=== PATIENT | female | born 1940 | race Caucasian/White ===

== ENCOUNTER 2018-12-27 11:59 | Inpatient (IN) | payer MEDICARE ==
[2018-12-22 12:03] LABS: BASOPHILS # (AUTO) 0.1 X10'3 (0-0.2); BASOPHILS % (AUTO) 0.8 % (0-1); EOSINOPHILS # (AUTO) 0.1 X10'3 (0-0.9); EOSINOPHILS % (AUTO) 1.6 % (0-6); LYMPHOCYTES # (AUTO) 1.7 X10'3 (1.1-4.8); LYMPHOCYTES % (AUTO) 26.5 % (21-51); MEAN CORPUSCULAR HEMOGLOBIN 28.8 PG (27.0-31.0); MEAN CORPUSCULAR HGB CONC 33.8 g/dL (33.0-36.5); MEAN PLATELET VOLUME 8.5 FL (7.4-10.4); MONOCYTES # (AUTO) 0.5 X10'3 (0-0.9); MONOCYTES % (AUTO) 7.6 % (2-12); NEUTROPHILS # (AUTO) 4.1 X10'3 (1.8-7.7); NEUTROPHILS % (AUTO) 63.5 % (42-75); PRE OP HEMATOCRIT 38.7 % (35.0-45.0); PRE OP HEMOGLOBIN 13.1 g/dL (12.0-16.0); PRE OP INR 1.1 INR; PRE OP PLATELET COUNT 242 X10'3 (140-440); PRE OP PROTIME 10.7 SECONDS (9.0-12.0); RED BLOOD COUNT 4.56 X10'6 (4.20-5.60); RED CELL DISTRIBUTION WIDTH 13.9 % (11.5-14.5)
[2018-12-22 12:05] LABS: ALBUMIN 3.6 G/DL (3.4-5.0); ALBUMIN/GLOBULIN RATIO 1.1 (1.1-1.5); ALKALINE PHOSPHATASE 65 IU/L (46-116); BLOOD UREA NITROGEN 23 MG/DL (7-18); CALCIUM 9.3 MG/DL (8.5-10.1); CHLORIDE 104 MMOL/L (99-107); CREATININE 0.82 MG/DL (0.40-0.90); PRE OP ALT 23 U/L (30-65); PRE OP ANION GAP 6 (8-16); PRE OP AST 11 U/L (10-37); PRE OP BILIRUB, TOTAL 0.6 MG/DL (0.0-1.0); PRE OP GLUCOSE 94 MG/DL (70-104); PRE OP SODIUM 142 MMOL/L (135-145); TOTAL CARBON DIOXIDE 31.8 MMOL/L (24-32); TOTAL PROTEIN 6.9 G/DL (6.4-8.2); eGFR 68 ML/MIN
[2018-12-22 12:06] LABS: PRE OP POTASSIUM 3.2 MMOL/L (3.4-5.1)
[2018-12-26 12:30] VITALS: BP 155/67
[2018-12-27] VITALS (15 sets, daily range): BP systolic 116–155; BP diastolic 57–89
[~2018-12-27] VITALS: Ht 161.3 cm; Wt 70.2 kg
[~2018-12-27 11:59] MED LIST: ATOR20TA66 PO; FLUO-1 PO; HYDR-4353 PO; LISI1TAB32 PO
[2018-12-27] MEDS ORDERED: tranexamic acid inj. 1,000 MG in normal saline 100 ML IV ONE (12:00)
[2018-12-27] MEDS ORDERED: cefazolin/dext.iso 2gm/100 ML IV ONE (12:00)
[2018-12-27] MEDS ORDERED: ringers solution, lacted 1,000 ML IV SCH ×2 (12:00→14:51)
[2018-12-27] MEDS ORDERED: famotidine 20mg tablet PO ONE (12:00)
[2018-12-27] MEDS ORDERED: vancomycin inj 1,500 MG in normal saline 300ml IV soln IV ONE (12:00)
[2018-12-27 13:06] LABS: ISTAT CREATININE 0.8 mg/dL (0.6-1.1); ISTAT HGB 11.9 g/dl (12.0-16.0); ISTAT IONIZED CALCIUM 1.17 mmol/L (1.03-1.32); ISTAT K 3.3 mmol/L (3.5-5.1)
[2018-12-27] MEDS ORDERED: ceFAZolin 1000mg inj ONE (13:25)
[2018-12-27] MEDS ORDERED: tetracaine 1% (10mg/ml) pres. free inj. ONE (13:49)
[2018-12-27] MEDS ORDERED: fentaNYL/PF 50MCG/1 ML 2ML syringe ONE (13:50)
[2018-12-27] MEDS ORDERED: MIDAZolam 5mg/5ml vial ONE (13:50)
[2018-12-27] MEDS ORDERED: proCHLORperazine 10 MG/2 ml inj IV PRN (14:55)
[2018-12-27] MEDS ORDERED: morphine 4 MG/ML inj SYRINge IV PRN ×2 (14:55)
[2018-12-27] MEDS ORDERED: ondansetron/PF 4mg/2ml inj IV PRN (14:55)
[2018-12-27] MEDS ORDERED: meperidine/PF 25mg/ml syringe IV PRN ×3 (14:55)
[2018-12-27] MEDS ORDERED: propofol inj 20 ML IV ONE (16:05)
[2018-12-27] MEDS ORDERED: ePHEDrine 50MG/ML INJ. ONE (16:05)
--- NOTE | 2018-12-27 16:08 | NUR ---
ARRIVED IN PACU VIA BED FROM OR WITH DR HOLCOMB IN ATTENDANCE. REPORT RECEIVED. VS STABLE. COLOR GOOD. WARM BLANKETS APPLIED TO PT
[2018-12-27] MEDS ORDERED: bisacodyl 10mg suppository rectal RC PRN (16:15)
[2018-12-27] MEDS ORDERED: diphenhydrAMINE 25mg capsule PO PRN ×2 (16:15)
[2018-12-27] MEDS ORDERED: magnesium hydroxide 30ml (MOM) UD suspension PO PRN (16:15)
[2018-12-27] MEDS ORDERED: HYDROmorphone inj. 0.5 MG/0.5 ML DISP.SYRIN IV PRN (16:15)
[2018-12-27] MEDS ORDERED: acetaminophen 325mg tablet PO PRN (16:15)
--- NOTE | 2018-12-27 17:08 | NUR ---
VS STABLE. AWAKE. TO ROOM VIA BED. FLOWER IN ROOM TO ACCEPT PT
[2018-12-27] MEDS ORDERED: aspirin 325mg tablet PO SCH (17:30)
[2018-12-27] MEDS: oxyCODONE IR 5mg (immed. release) tablet PO PRN (19:01)
[2018-12-27] MEDS: vancomycin/NS 1 GM ADD-VANTAGE 250 ML IV SCH ×2 (20:00→21:35)
[2018-12-27] MEDS: HYDROchlorothiazide 12.5mg capsule PO SCH ×2 (21:00→21:35)
[2018-12-27] MEDS: sennosides 8.6mg tablet PO SCH ×2 (21:00→21:35)
[2018-12-27] MEDS ORDERED: HYDROCHLOROTHIAZIDE PO SCH (21:00)
[2018-12-27] MEDS: lisinopril 10 MG tablet PO SCH ×2 (21:00→21:35)
[2018-12-27] MEDS ORDERED: LISINOPRIL PO SCH (21:00)
[2018-12-27] MEDS: FLUoxetine 20mg capsule PO SCH ×2 (21:00→21:35)
[2018-12-27] MEDS ORDERED: [UNRECOGNIZED DRUG - OTHER] PO SCH (21:00)
[2018-12-28] VITALS (7 sets, daily range): BP systolic 101–118; BP diastolic 36–50
[2018-12-28] MEDS: oxyCODONE IR 5mg (immed. release) tablet PO PRN ×4 (00:29→16:42)
[2018-12-28] MEDS: ceFAZolin 1GM/D5W- ADD-VANTAGE 50 ML IV SCH ×2 (00:29→07:12)
--- NOTE | 2018-12-28 00:36 | NUR ---
PT MEDS SCANNED AT TIME OF ADMINISTRATION, WERE SAVED ON PORTABLE [employer] COMPUTER AND DID NOT REGISTER SCAN, WAS LATER DISCOVERED, RN THEN PERFORMED UNSCHEDULED ADMIN TO COMPLETE PLACEMENT INTERVIEWER. THE COMPUTER AGAIN DID NOT REGISTER ADMINISTRATION ON DESK COMPUTER. ALL MEDS REMAIN "LATE" IN PINK, BUT ALL WERE ADMINISTERED. 2134 ON 12/27/18.
[2018-12-28 06:11] LABS: BASOPHILS # (AUTO) 0.1 X10'3 (0-0.2); BASOPHILS % (AUTO) 0.8 % (0-1); EOSINOPHILS % (AUTO) 0.3 % (0-6); HEMATOCRIT 30.3 % (35.0-45.0); HEMOGLOBIN 10.5 g/dl (12.0-16.0); LYMPHOCYTES # (AUTO) 1.1 X10'3 (1.1-4.8); LYMPHOCYTES % (AUTO) 16.4 % (21-51); MEAN CORPUSCULAR HEMOGLOBIN 29.7 PG (27.0-31.0); MEAN CORPUSCULAR HGB CONC 34.7 g/dL (33.0-36.5); MEAN CORPUSCULAR VOLUME 85.5 FL (78-98); MEAN PLATELET VOLUME 8.4 FL (7.4-10.4); MONOCYTES # (AUTO) 0.6 X10'3 (0-0.9); MONOCYTES % (AUTO) 8.9 % (2-12); NEUTROPHILS # (AUTO) 4.9 X10'3 (1.8-7.7); NEUTROPHILS % (AUTO) 73.6 % (42-75); PLATELET COUNT 178 X10'3 (140-440); RED BLOOD COUNT 3.54 X10'6 (4.20-5.60); RED CELL DISTRIBUTION WIDTH 13.7 % (11.5-14.5); WHITE BLOOD COUNT 6.7 X10'3 (4.5-11.0)
--- NOTE | 2018-12-28 06:28 | NUR ---
Report given to tree Garcia.
[2018-12-28 06:29] LABS: ALANINE AMINOTRANSFERASE 18 U/L (12-78); ALBUMIN 2.7 G/DL (3.4-5.0); ALKALINE PHOSPHATASE 50 IU/L (46-116); ANION GAP 7 (8-16); ASPARTATE AMINO TRANSFERASE 16 U/L (10-37); BILIRUBIN,TOTAL 0.7 MG/DL (0.1-1.0); BLOOD UREA NITROGEN 18 MG/DL (7-18); BUN/CREATININE RATIO 23.7 (6.6-38.0); CALCIUM 8.3 MG/DL (8.5-10.1); CHLORIDE 106 MMOL/L (99-107); CREATININE 0.76 MG/DL (0.40-0.90); GLUCOSE 123 MG/DL (70-104); POTASSIUM 3.4 MMOL/L (3.5-5.1); SODIUM 143 MMOL/L (135-145); TOTAL CARBON DIOXIDE 30.1 MMOL/L (24-32); TOTAL PROTEIN 5.3 G/DL (6.4-8.2); eGFR 74 ML/MIN
--- NOTE | 2018-12-28 06:30 | NUR ---
Patient in room [facility] 4014. I have received report from ISAURO Mckenna and had the opportunity to ask questions and assume patient care.
[2018-12-28] MEDS: aspirin 81mg tablet.DR PO SCH ×2 (07:12→17:33)
[2018-12-28] MEDS ORDERED: potassium CL 10mEq/100ml bag 100 ML IV PRN ×2 (09:40)
[2018-12-28] MEDS ORDERED: potassium Cl 20 mEq SR tablet PO PRN (09:40)
[2018-12-28] MEDS: potassium Cl 20 mEq SR tablet PO PRN ×3 (09:59→17:32)
[2018-12-28] MEDS: potassium Cl 20mEq in NS 1,000 ML IV SCH ×4 (13:15→19:48)
--- NOTE | 2018-12-28 16:00 | NUR ---
Total joint replacement: Pt seen at bedside provided with written and verbal protein education and RD contact information. Pt currently on regular diet with documented 25-50% PO intake at breakfast however 0% at lunch not meeting nutrient needs. Pt reports low PO intake r/t post-op nausea and is agreeable to mexican yogurt TID, d/w dietary. Will continue to follow. Addendum: 12/28/18 at [address] Amended: Links added.
--- NOTE | 2018-12-28 18:52 | NUR ---
Problems reprioritized. Patient report given, questions answered & plan of care reviewed with ISAURO Aguayo.
[2018-12-28] MEDS: ketorolac tromethamine 15mg/ml inj. IV SCH (19:35)
[2018-12-28] MEDS: sennosides 8.6mg tablet PO SCH (19:35)
[2018-12-28] MEDS: lisinopril 10 MG tablet PO SCH (19:36)
[2018-12-28] MEDS: FLUoxetine 20mg capsule PO SCH (19:36)
[2018-12-28] MEDS: HYDROchlorothiazide 12.5mg capsule PO SCH (19:37)
[2018-12-28] MEDS: ondansetron/PF 4mg/2ml inj IV PRN (19:47)
[2018-12-28] MEDS ORDERED: ketorolac tromethamine 15mg/ml inj. IM SCH (20:00)
--- NOTE | 2018-12-28 23:26 | NUR ---
noted decreased BP at 2200, better at 2300. pt alert, resting. at a couple crackers and reports her stomach feeling a little better. PM BP meds were held earlier.
[2018-12-29] MEDS: ketorolac tromethamine 15mg/ml inj. IV SCH ×4 (01:46→20:09)
[2018-12-29] MEDS: potassium Cl 20mEq in NS 1,000 ML IV SCH (01:52)
[2018-12-29 01:57] VITALS: BP 129/62
[2018-12-29] MEDS: oxyCODONE IR 5mg (immed. release) tablet PO PRN (05:34)
[2018-12-29 06:11] LABS: BASOPHILS % (AUTO) 0.4 % (0-1); EOSINOPHILS # (AUTO) 0.3 X10'3 (0-0.9); EOSINOPHILS % (AUTO) 3.9 % (0-6); HEMATOCRIT 29.9 % (35.0-45.0); HEMOGLOBIN 10.4 g/dl (12.0-16.0); LYMPHOCYTES # (AUTO) 1.1 X10'3 (1.1-4.8); LYMPHOCYTES % (AUTO) 13.1 % (21-51); MEAN CORPUSCULAR HEMOGLOBIN 29.4 PG (27.0-31.0); MEAN CORPUSCULAR HGB CONC 34.7 g/dL (33.0-36.5); MEAN CORPUSCULAR VOLUME 84.9 FL (78-98); MEAN PLATELET VOLUME 8.6 FL (7.4-10.4); MONOCYTES # (AUTO) 0.8 X10'3 (0-0.9); MONOCYTES % (AUTO) 9.2 % (2-12); NEUTROPHILS % (AUTO) 73.4 % (42-75); PLATELET COUNT 170 X10'3 (140-440); RED BLOOD COUNT 3.52 X10'6 (4.20-5.60); RED CELL DISTRIBUTION WIDTH 13.9 % (11.5-14.5); WHITE BLOOD COUNT 8.2 X10'3 (4.5-11.0)
--- NOTE | 2018-12-29 06:15 | NUR ---
reported to days. pt states she is feeling better this am. faxed for cream of wheat this am.
[2018-12-29 06:20] LABS: ALANINE AMINOTRANSFERASE 15 U/L (12-78); ALBUMIN 2.4 G/DL (3.4-5.0); ALBUMIN/GLOBULIN RATIO 0.9 (1.1-1.5); ALKALINE PHOSPHATASE 50 IU/L (46-116); ANION GAP 6 (8-16); ASPARTATE AMINO TRANSFERASE 14 U/L (10-37); BILIRUBIN,TOTAL 0.7 MG/DL (0.1-1.0); BLOOD UREA NITROGEN 16 MG/DL (7-18); BUN/CREATININE RATIO 20.5 (6.6-38.0); CHLORIDE 106 MMOL/L (99-107); CREATININE 0.78 MG/DL (0.40-0.90); GLUCOSE 115 MG/DL (70-104); POTASSIUM 3.8 MMOL/L (3.5-5.1); SODIUM 141 MMOL/L (135-145); TOTAL CARBON DIOXIDE 28.9 MMOL/L (24-32); TOTAL PROTEIN 5.2 G/DL (6.4-8.2); eGFR 72 ML/MIN
[2018-12-29 06:40] VITALS: BP 146/69
[2018-12-29] MEDS: K and/or MAG REPLACEMENT MC SCH (08:00)
[2018-12-29 10:00] VITALS: BP 120/68
[2018-12-29] MEDS: aspirin 81mg tablet.DR PO SCH ×2 (10:30→17:40)
[2018-12-29 18:00] VITALS: BP 117/65
--- NOTE | 2018-12-29 18:39 | NUR ---
Patient in room [facility] 4014. I have received report from Jenna BOX and had the opportunity to ask questions and assume patient care.
[2018-12-29 20:00] VITALS: BP 148/59
[2018-12-29] MEDS: sennosides 8.6mg tablet PO SCH (20:05)
[2018-12-29] MEDS: FLUoxetine 20mg capsule PO SCH (20:05)
[2018-12-29] MEDS: HYDROchlorothiazide 12.5mg capsule PO SCH (20:07)
[2018-12-29] MEDS: lisinopril 10 MG tablet PO SCH (20:08)
[2018-12-29 22:00] VITALS: BP 145/53
[2018-12-30] MEDS: ketorolac tromethamine 15mg/ml inj. IV SCH (02:28)
[2018-12-30 06:00] VITALS: BP 146/50
--- NOTE | 2018-12-30 06:15 | NUR ---
Patient in room [facility] 4014. I have received report from Antione BOX and had the opportunity to ask questions and assume patient care.
--- NOTE | 2018-12-30 06:23 | NUR ---
Problems reprioritized. Patient report given, questions answered & plan of care reviewed with Mindi BOX.
[2018-12-30 06:43] LABS: ALANINE AMINOTRANSFERASE 14 U/L (12-78); ALBUMIN 2.3 G/DL (3.4-5.0); ALBUMIN/GLOBULIN RATIO 0.8 (1.1-1.5); ALKALINE PHOSPHATASE 53 IU/L (46-116); ANION GAP 6 (8-16); ASPARTATE AMINO TRANSFERASE 14 U/L (10-37); BILIRUBIN,TOTAL 0.8 MG/DL (0.1-1.0); BLOOD UREA NITROGEN 17 MG/DL (7-18); BUN/CREATININE RATIO 24.6 (6.6-38.0); CALCIUM 8.1 MG/DL (8.5-10.1); CHLORIDE 103 MMOL/L (99-107); CREATININE 0.69 MG/DL (0.40-0.90); GLUCOSE 112 MG/DL (70-104); POTASSIUM 3.4 MMOL/L (3.5-5.1); SODIUM 138 MMOL/L (135-145); TOTAL CARBON DIOXIDE 29.1 MMOL/L (24-32); TOTAL PROTEIN 5.3 G/DL (6.4-8.2); eGFR 82 ML/MIN
[2018-12-30 06:51] LABS: BASOPHILS % (AUTO) 0.2 % (0-1); EOSINOPHILS # (AUTO) 0.3 X10'3 (0-0.9); EOSINOPHILS % (AUTO) 2.9 % (0-6); HEMOGLOBIN 9.4 g/dl (12.0-16.0); LYMPHOCYTES % (AUTO) 10.6 % (21-51); MEAN CORPUSCULAR HEMOGLOBIN 29.5 PG (27.0-31.0); MEAN CORPUSCULAR HGB CONC 34.8 g/dL (33.0-36.5); MEAN CORPUSCULAR VOLUME 84.7 FL (78-98); MEAN PLATELET VOLUME 8.8 FL (7.4-10.4); MONOCYTES # (AUTO) 0.7 X10'3 (0-0.9); MONOCYTES % (AUTO) 7.9 % (2-12); NEUTROPHILS # (AUTO) 7.3 X10'3 (1.8-7.7); NEUTROPHILS % (AUTO) 78.4 % (42-75); PLATELET COUNT 170 X10'3 (140-440); RED BLOOD COUNT 3.19 X10'6 (4.20-5.60); RED CELL DISTRIBUTION WIDTH 13.7 % (11.5-14.5); WHITE BLOOD COUNT 9.3 X10'3 (4.5-11.0)
[2018-12-30] MEDS: aspirin 81mg tablet.DR PO SCH ×2 (07:18→18:19)
[2018-12-30] MEDS: potassium Cl 20 mEq SR tablet PO PRN ×3 (07:18→20:00)
[2018-12-30] MEDS: K and/or MAG REPLACEMENT MC SCH (08:00)
[2018-12-30 10:00] VITALS: BP 144/53
[2018-12-30] MEDS: mag hydrox/Alum hydrox/simeth 30ml oral suspension PO PRN ×2 (10:08→20:01)
[2018-12-30] MEDS: oxyCODONE IR 5mg (immed. release) tablet PO PRN (16:16)
[2018-12-30] MEDS: ondansetron/PF 4mg/2ml inj IV PRN (16:17)
[2018-12-30 18:00] VITALS: BP 127/45
--- NOTE | 2018-12-30 18:03 | NUR ---
Problems reprioritized. Patient report given, questions answered & plan of care reviewed with Antione BOX.
--- NOTE | 2018-12-30 18:11 | NUR ---
Problems reprioritized. Patient report given, questions answered & plan of care reviewed with Antione BOX.
[2018-12-30] MEDS: sennosides 8.6mg tablet PO SCH (20:01)
[2018-12-30] MEDS: FLUoxetine 20mg capsule PO SCH (20:01)
[2018-12-30] MEDS: lisinopril 10 MG tablet PO SCH (20:02)
[2018-12-30] MEDS: HYDROchlorothiazide 12.5mg capsule PO SCH (20:02)
[2018-12-30 20:03] VITALS: BP 119/51
[2018-12-30 21:00] VITALS: BP 112/41
--- NOTE | 2018-12-31 06:14 | NUR ---
Problems reprioritized. Patient report given, questions answered & plan of care reviewed with Sivan BOX.
[2018-12-31 06:36] VITALS: BP 124/49
--- NOTE | 2018-12-31 06:37 | NUR ---
Patient in room [facility] 4014. I have received report from Antione BOX and had the opportunity to ask questions and assume patient care.
[2018-12-31] MEDS: K and/or MAG REPLACEMENT MC SCH (07:57)
[2018-12-31] MEDS: ondansetron/PF 4mg/2ml inj IV PRN (08:02)
[2018-12-31] MEDS: aspirin 81mg tablet.DR PO SCH (08:02)
[2018-12-31] MEDS: oxyCODONE IR 5mg (immed. release) tablet PO PRN (08:03)
--- NOTE | 2018-12-31 10:47 | NUR ---
Pt stable, DC with home with family member. Educated on rodrick dressing. All belongings with Pt. Pt will follow up with provider.
--- NOTE | 2018-12-31 10:49 | NUR ---
I have reviewed and agree with all interventions, assessments performed and documented by Vik BOX.
== END 2018-12-31 09:34 | disposition home or self-care (01) | DRG 470 ==
LOC: PAS IN 11:59 → EDSTATUS 14:00 → ORTHO 4S 18:30
PROVIDERS: ADMIT Orthopaedic Surgery; ATTEND Orthopaedic Surgery
PROC: 0SR901Z Replacement of Right Hip Joint with Metal Synthetic Substitute, Open Approach (ICD-10-PCS; principal; 2018-12-27 13:42)
DX: M16.11 Unilateral primary osteoarthritis, right hip (principal); G47.30 Sleep apnea, unspecified; Z96.653 Presence of artificial knee joint, bilateral; I10 Essential (primary) hypertension; F32.9 Major depressive disorder, single episode, unspecified; Z87.891 Personal history of nicotine dependence
CPT/HCPCS: 36415; 80047; 80053; 85025; 85610; 85730; 86885; 86900; 86901; 86920; 87081; 97110; 97116; 97162; 97530; 97535; A6258; A6402; A7000; C1758; C1776; G0378; J0690; J1170; J1885; J2250; J2405; J2704; J3010; J3370; J3480; J7120

== ENCOUNTER 2023-12-04 10:33 | Outpatient (CLI) | payer MEDICARE ==
[~2023-12-04 10:33] MED LIST changes: -ATOR20TA66 PO; -HYDR-4353 PO; -LISI1TAB32 PO; +LISI1TAB49 PO
[2023-12-04] MEDS ORDERED: LISI1TAB51 PO (11:06)
[2023-12-04] MEDS ORDERED: ATOR20TA66 PO (11:06)
[2023-12-04] MEDS ORDERED: VIT1CAPS9 PO (11:06)
[2023-12-04] MEDS ORDERED: ASPI81TA52 PO (11:06)
[2023-12-04] MEDS ORDERED: POTA-207 PO (11:06)
[2023-12-04] MEDS ORDERED: MULT-1085 PO (11:06)
[2023-12-04 12:04] LABS: BASOPHILS # (AUTO) 0.1 X10'3 (0-0.2); BASOPHILS % (AUTO) 1.1 % (0-1); EOSINOPHILS # (AUTO) 0.1 X10'3 (0-0.9); HEMATOCRIT 37.5 % (35.0-45.0); HEMOGLOBIN 12.5 g/dl (12.0-16.0); LYMPHOCYTES # (AUTO) 1.3 X10'3 (1.1-4.8); LYMPHOCYTES % (AUTO) 25.2 % (21-51); MEAN CORPUSCULAR HEMOGLOBIN 28.4 PG (27.0-31.0); MEAN CORPUSCULAR HGB CONC 33.4 g/dL (33.0-36.5); MEAN CORPUSCULAR VOLUME 85.1 FL (78-98); MEAN PLATELET VOLUME 8.6 FL (7.4-10.4); MONOCYTES # (AUTO) 0.4 X10'3 (0-0.9); MONOCYTES % (AUTO) 7.9 % (2-12); NEUTROPHILS # (AUTO) 3.5 X10'3 (1.8-7.7); NEUTROPHILS % (AUTO) 64.8 % (42-75); PLATELET COUNT 237 X10'3 (140-440); RED CELL DISTRIBUTION WIDTH 14.5 % (11.5-14.5); WHITE BLOOD COUNT 5.3 X10'3 (4.5-11.0)
[2023-12-04 12:35] LABS: ALANINE AMINOTRANSFERASE 26 U/L (12-78); ALBUMIN 3.4 G/DL (3.4-5.0); ALKALINE PHOSPHATASE 75 IU/L (46-116); ANION GAP 7 (8-16); ASPARTATE AMINO TRANSFERASE 16 U/L (10-37); BILIRUBIN,TOTAL 0.8 MG/DL (0.1-1.0); BLOOD UREA NITROGEN 24 MG/DL (7-18); BUN/CREATININE RATIO 25.8 (10.0-20.0); CALCIUM 9.4 MG/DL (8.5-10.1); CHLORIDE 101 MMOL/L (99-107); CREATININE 0.93 MG/DL (0.40-0.90); FREE T4 (FREE THYROXINE) 1.17 NG/DL (0.73-1.40); GLUCOSE 102 MG/DL (70-104); MAGNESIUM 2.2 MG/DL (1.5-2.4); POTASSIUM 3.4 MMOL/L (3.5-5.1); SODIUM 139 MMOL/L (135-145); THYROID STIMULATING HORMONE 1.48 ulU/ml (0.34-4.50); TOTAL CARBON DIOXIDE 30.6 MMOL/L (24-32); TOTAL PROTEIN 6.8 G/DL (6.4-8.2); eGFR 58 ML/MIN
== END 2023-12-04 23:59 | disposition home or self-care (01) ==
LOC: LAB 10:33
PROVIDERS: ATTEND Family Medicine
DX: Z01.812 Encounter for preprocedural laboratory examination (principal); I10 Essential (primary) hypertension; E78.5 Hyperlipidemia, unspecified; G72.89 Other specified myopathies; Z90.722 Acquired absence of ovaries, bilateral
CPT/HCPCS: 36415; 80053; 83735; 84439; 84443; 85025

== ENCOUNTER 2023-12-10 13:10 | Day surgery (SDC) | payer MEDICARE ==
[2023-12-04 11:41] LABS: BASOPHILS # (AUTO) 0.1 X10'3 (0-0.2); BASOPHILS % (AUTO) 1.1 % (0-1); EOSINOPHILS # (AUTO) 0.1 X10'3 (0-0.9); EOSINOPHILS % (AUTO) 1.1 % (0-6); LYMPHOCYTES # (AUTO) 1.4 X10'3 (1.1-4.8); LYMPHOCYTES % (AUTO) 25.4 % (21-51); MEAN CORPUSCULAR HEMOGLOBIN 28.3 PG (27.0-31.0); MEAN CORPUSCULAR HGB CONC 33.1 g/dL (33.0-36.5); MEAN CORPUSCULAR VOLUME 85.4 FL (78-98); MEAN PLATELET VOLUME 8.1 FL (7.4-10.4); MONOCYTES # (AUTO) 0.5 X10'3 (0-0.9); MONOCYTES % (AUTO) 8.4 % (2-12); NEUTROPHILS # (AUTO) 3.5 X10'3 (1.8-7.7); PRE OP HEMATOCRIT 37.5 % (35.0-45.0); PRE OP HEMOGLOBIN 12.4 g/dL (12.0-16.0); PRE OP PLATELET COUNT 234 X10'3 (140-440); PRE OP WHITE BLOOD COUNT 5.4 10'3 (4.8-10.8); RED CELL DISTRIBUTION WIDTH 14.9 % (11.5-14.5)
[2023-12-04 11:48] LABS: PRE OP PROTIME 10.7 SECONDS (9.0-12.0)
[2023-12-04 11:50] LABS: ALBUMIN 3.4 G/DL (3.4-5.0); ALKALINE PHOSPHATASE 75 IU/L (46-116); BLOOD UREA NITROGEN 22 MG/DL (7-18); BUN/CREATININE RATIO 23.7 (10.0-20.0); CALCIUM 9.2 MG/DL (8.5-10.1); CHLORIDE 101 MMOL/L (99-107); CREATININE 0.93 MG/DL (0.40-0.90); PRE OP ALT 25 U/L (30-65); PRE OP ANION GAP 9 (8-16); PRE OP AST 15 U/L (10-37); PRE OP BILIRUB, TOTAL 0.8 MG/DL (0.0-1.0); PRE OP GLUCOSE 102 MG/DL (70-104); PRE OP POTASSIUM 3.4 MMOL/L (3.4-5.1); PRE OP SODIUM 140 MMOL/L (135-145); TOTAL CARBON DIOXIDE 30.5 MMOL/L (24-32); TOTAL PROTEIN 6.8 G/DL (6.4-8.2); eGFR 58 ML/MIN
[2023-12-04 12:06] LABS: BILIRUBIN,URINE NEGATIVE (Neg); CLARITY,URINE CLEAR (Clear); COLOR,URINE YELLOW (Yellow); GLUCOSE, URINE NEGATIVE (Neg); KETONES,URINE NEGATIVE (Neg); LEUKOCYTE ESTERASE ,URINE NEGATIVE (Neg); NITRITES, URINE NEGATIVE (Neg); OCCULT BLOOD,URINE NEGATIVE (Neg); PROTEIN,URINE NEGATIVE (Neg); UA COLLECTION TYPE CLN CATCH MIDSTREAM; UROBILINOGEN,URINE 0.2 E.U/dL (0.2-1.0)
[2023-12-10] VITALS (9 sets, daily range): BP systolic 119–150; BP diastolic 61–90; PULSE 55–69; RESP 8–16; TEMP 98.1; O2SAT 82–100
[~2023-12-10] VITALS: Ht 162.6 cm; Wt 73.5 kg
[~2023-12-10 13:10] MED LIST changes: +ATOR20TA66 PO; -FLUO-1 PO; +FLUO40CA PO; -LISI1TAB49 PO; +LISI1TAB51 PO; +MULT-1085 PO; +POTA-207 PO; +VIT1CAPS9 PO
[2023-12-10] MEDS: famotidine 20mg tablet PO ONE (14:17)
[2023-12-10] MEDS: ringers solution, lacted 1,000 ML IV SCH (14:17)
[2023-12-10] MEDS: ceFOXitin 2GM-NS 100mL ADDvant 100 ML IV ONE (14:18)
[2023-12-10] MEDS ORDERED: BUPIVAcaine/PF 2.5mg/ml (0.25%) 10ml vial ONE (16:55)
[2023-12-10] MEDS ORDERED: sevoflurane 250ml liquid IH ONE (17:25)
[2023-12-10] MEDS ORDERED: propofol inj 20 ML IV ONE (17:41)
[2023-12-10] MEDS ORDERED: labetalol 20mg/4ml (5mg/ml) syringe IV ONE (17:41)
[2023-12-10] MEDS ORDERED: ondansetron/PF 4mg/2ml inj ONE (17:41)
[2023-12-10] MEDS ORDERED: LIDOcaine 2% (20mg/ml) 5ml vial ONE (17:41)
[2023-12-10] MEDS ORDERED: dexamethasone sod phosphate 4mg/ml inj. ONE (17:41)
[2023-12-10] MEDS ORDERED: rocuronium 10mg/ml inj IV ONE (17:41)
[2023-12-10] MEDS ORDERED: sugammadex 200mg/2ml injection IV ONE (17:42)
[2023-12-10] MEDS ORDERED: fentaNYL/PF 50MCG/1 ML 2ML syringe ONE (17:42)
[2023-12-10] MEDS ORDERED: morphine 4 MG/ML inj SYRINge IV PRN (18:10)
[2023-12-10] MEDS ORDERED: enalaprilat dihydrate 2.5mg/2ml vial IV PRN (18:10)
[2023-12-10] MEDS ORDERED: fentaNYL/PF 50MCG/1 ML 2ML syringe IV PRN ×2 (18:10)
[2023-12-10] MEDS ORDERED: ondansetron/PF 4mg/2ml inj IV PRN (18:10)
[2023-12-10] MEDS ORDERED: ringers solution, lacted 1,000 ML IV SCH (18:10)
[2023-12-10] MEDS ORDERED: morphine 2 MG/ML inj. syringe IV PRN (18:10)
[2023-12-10] MEDS ORDERED: hydrALAZINE 20mg/ml inj. IV PRN (18:10)
[2023-12-10] MEDS: BUPIVAcaine 2.5mg/ml inj 50ml vial (contains preservative) ONE (18:17)
== END 2023-12-10 19:41 | disposition home or self-care (01) ==
LOC: PRE-OP 13:10
PROVIDERS: ATTEND Obstetrics & Gynecology Obstetrics
DX: N83.201 Unspecified ovarian cyst, right side (principal); I10 Essential (primary) hypertension; E78.00 Pure hypercholesterolemia, unspecified; F41.9 Anxiety disorder, unspecified; F32.A Depression, unspecified; G47.30 Sleep apnea, unspecified; I25.2 Old myocardial infarction; Z87.891 Personal history of nicotine dependence; Z90.710 Acquired absence of both cervix and uterus; Z96.653 Presence of artificial knee joint, bilateral; Z98.890 Other specified postprocedural states
CPT/HCPCS: 36415; 58661; 80053; 81003; 82948; 85025; 85610; 85730; 86885; 86900; 86901; A4618; A7000; J0694; J1100; J2001; J2405; J2704; J3010; J3490; J7030; J7120; Z7506; Z7508; Z7512; Z7610